=== PATIENT | female | born 1995 | race Caucasian/White ===

== ENCOUNTER 2023-02-18 14:35 | Emergency (ER) | payer MEDICAID, OTHER ==
[~2023-02-18] VITALS: Ht 152.4 cm; Wt 63.5 kg
[2023-02-18 14:59] VITALS: O2SAT 99
[2023-02-18] MEDS ORDERED: TETRACAINE 0.5% OPHTH DROPS 4ML LEFTEYE ONE (15:30)
[2023-02-18] MEDS ORDERED: FLUORESCEIN SODIUM 1MG/STRIP LEFTEYE ONE (15:30)
[2023-02-18] MEDS ORDERED: DEXT15DR5 EACHEYE (17:00)
[2023-02-18 17:36] VITALS: BP 127/76; PULSE 68; RESP 16; TEMP 98.4
== END 2023-02-18 17:37 | disposition home or self-care (01) ==
LOC: ER 14:35
DX: H57.12 Ocular pain, left eye (principal)
CPT/HCPCS: 99283